=== PATIENT | male | born 1990 | race Caucasian/White ===

== ENCOUNTER 2021-10-11 01:29 | Inpatient (IN) ==
[2021-10-11 01:57] LABS: Basophils % 0.5 %; Eosinophils # 0.1 K/mcL (0.0-0.6); Eosinophils % 1.4 %; Hematocrit 46.1 % (37.5-50.1); Hemoglobin 15.8 g/dL (12.9-16.9); Immature Granulocytes % 0.2 % (0-4); Lymphocytes # 2.4 K/mcL (0.6-4.6); Lymphocytes % 35.9 %; Mean Corpuscular HGB Conc 34.3 g/dL (31.6-35.5); Mean Corpuscular Hemoglobin 30.4 pg (28.0-33.3); Mean Corpuscular Volume 88.7 fL (83.0-100.0); Mean Platelet Volume 10.7 fL (9.4-12.4); Monocytes # 0.7 K/mcL (0.0-1.3); Monocytes % 10.2 %; Neutrophils # 3.4 K/mcL (1.6-8.9); Platelet Count 186 K/mcL (140-400); Red Cell Distribution Width 11.5 % (11.5-14.5); Segmented Neutrophils % 51.8 %; White Blood Count 6.5 K/mcL (4.3-11.1)
[2021-10-11 02:05] LABS: Estimated Average Glucose 105 mg/dl; Hemoglobin A1C 5.3 %
[2021-10-11 02:17] LABS: Acetaminophen < 10 mcg/mL (10-20); Blood Urea Nitrogen 16 mg/dL (6-20); Calcium 9.8 mg/dL (8.6-10.3); Carbon Dioxide 25 mEq/L (23-29); Chloride 104 mEq/L (98-107); Chol/HDL Ratio 2.8 (0-4.9); Cholesterol 109 mg/dL (< 200); Ethanol < 10 mg/dL (Less than 10); Glucose 166 mg/dL (70-105); HDL Cholesterol 39 mg/dL (40-59); LDL Cholesterol,Calculated 55 mg/dL (< 100); Osmolality,Calculated 291 (280-300); Potassium 3.1 mEq/L (3.5-5.1); Salicylate < 2.5 mg/dL (15.0-30.0); Sodium 138 mEq/L (136-145); Triglycerides 76 mg/dL (< 150)
[2021-10-11 03:22] LABS: Bilirubin,Urine Negative (Negative); Blood,Urine Negative (Negative); Clarity,Urine Clear (Clear); Color,Urine Yellow (Yellow); Glucose,Urine (UA) Normal (Normal); Ketones,Urine Negative (Negative); Leukocyte Esterase,Urine Negative (Negative); Nitrite,Urine Negative (Negative); PH,Urine 6.5 pH Units (5.0-8.0); Protein,Urine Negative (Neg-Trace); Specific Gravity,Urine 1.025 (1.010-1.025); Urobilinogen,Urine Normal (Normal)
[2021-10-11 03:22] LABS: BUN/Creatinine Ratio 18 (6-26); eGFR For African Americans > 60 (> 60); eGFR For Non-African Americans > 60 (> 60)
[2021-10-11 03:37] LABS: Amphetamine Screen,Urine Negative ng/mL (Cutoff=1000); Barbiturate Screen,Urine Negative ng/mL (Cutoff=200); Benzodiazepines Screen,Urine Negative ng/mL (Cutoff=200); Cannabinoid Screen,Urine Positive ng/mL (Cutoff = 50); Cocaine Screen,Urine Negative ng/mL (Cutoff= 300); Opiate Screen,Urine Negative ng/mL (Cutoff=300); Phencyclidine Screen,Urine Negative ng/mL (Cutoff=25)
[2021-10-11 06:10] LABS: Influenza A PCR Negative (Negative); Influenza B PCR Negative (Negative); Resp. Syncytial Virus PCR Negative (Negative)
[2021-10-11 06:14] LABS: SARS-CoV-2 by PCR (In House) Negative (Negative)
[2021-10-11] MEDS ORDERED: *HR* LORazepam 2 MG/ML VIAL IM PRN (06:19)
[2021-10-11] MEDS ORDERED: QUEtiapine Fumarate 25 MG TABLET PO PRN (06:19)
[2021-10-11] MEDS ORDERED: Acetaminophen 325 MG TABLET PO PRN (06:19)
[2021-10-11] MEDS ORDERED: Haloperidol Lactate 5 MG/ML VIAL IM PRN (06:19)
[2021-10-11] MEDS ORDERED: hydrOXYzine pamoate 25 MG CAPSULE PO PRN (06:19)
[2021-10-11] MEDS ORDERED: Nicotine 2 MG GUM BC PRN (11:50)
[2021-10-11] MEDS ORDERED: MOM Conc 10 ML UD.LIQ PO PRN (11:50)
[2021-10-11] MEDS ORDERED: Mag Hydrox/Al Hydrox/Simeth 30 ML UDC PO PRN (11:50)
[2021-10-11] MEDS: haloperidoL 5 MG TABLET PO PRN (17:06)
[2021-10-11] MEDS: *HR* LORazepam 1 MG TABLET PO PRN (17:06)
[2021-10-11] MEDS ORDERED: risperiDONE 1 MG TABLET PO SCH (21:00)
[2021-10-12 09:29] VITALS: O2SAT 98
[2021-10-12] MEDS: risperiDONE 1 MG TABLET PO SCH ×2 (09:58→21:09)
[2021-10-12] MEDS: haloperidoL 5 MG TABLET PO PRN (15:49)
[2021-10-12] MEDS: *HR* LORazepam 1 MG TABLET PO PRN (15:49)
[2021-10-12 20:42] VITALS: TEMP 98
[2021-10-13 08:24] VITALS: BP 105/70; PULSE 103
[2021-10-13] MEDS: risperiDONE 1 MG TABLET PO SCH (08:58)
[2021-10-13] MEDS ORDERED: RisperiDONE MICROSPHERES 25 MG/2 ML SYRINGE IM SCH ×2 (11:00→13:15)
== END 2021-10-13 17:25 | disposition home or self-care (01) | DRG 885 ==
LOC: EMEROOARM 01:29 → 1ANU 06:21
PROVIDERS: ADMIT Psychiatry & Neurology Psychiatry; ATTEND Psychiatry & Neurology Psychiatry